=== PATIENT | female | born 1930 | race Caucasian/White ===

== ENCOUNTER 2017-07-07 17:39 | Emergency (ER) | payer OTHER, BC ==
--- NOTE | 2017-07-07 17:46 | EDPHY ---
H & P Time Seen by Provider: 07/07/17 17:45 - Personal History Tetanus Vaccine Date: WITHIN 10 YRS - Medical/Surgical History Hx Asthma: No Hx Chronic Respiratory Disease: No Hx Diabetes: No Hx Cardiac Disease: Yes Hx Renal Disease: No Hx Cirrhosis: No Hx Alcoholism: No Hx HIV/AIDS: No Hx Splenectomy or Spleen Trauma: No Other PMH: PE, HTN, compression fx, high cholesterol, home oxygen,frequent falls due to ETOH - Social History Smoking Status: Never smoked Constitutional: Initial Vital Signs Temperature (C) 36.8 C 07/07/17 17:43 Heart Rate 69 07/07/17 17:43 Respiratory Rate 18 07/07/17 17:43 Blood Pressure 123/78 H 07/07/17 17:43 O2 Sat (%) 88 L 07/07/17 17:43 O2 Delivery Mode Room Air O2 (L/minute) 3 Allergies/Adverse Reactions: No Known Allergies Allergy (Verified 11/14/13 11:32) Home Medications: Medication Instructions Recorded Acetaminophen [Tylenol ES 500 mg 500 - 1,000 mg PO DAILY PRN 09/14/13 (*)] Atorvastatin Calcium [Lipitor 40 40 mg PO DAILY 09/14/13 mg (*)] Cholecalciferol Vit D3 [Vitamin D3 50,000 unit PO SUTH@09 09/14/13 (*)] Montelukast Sodium [Singulair 10 10 mg PO DAILY@1800 09/14/13 mg (*)] Rivaroxaban [Xarelto 10mg (*)] 20 mg PO DAILY 09/14/13 Aspirin [Aspirin 81mg (*)] 81 mg PO DAILY #0 tab 11/22/13 Losartan Potassium [Cozaar 50 mg 50 mg PO DAILY #0 tab 11/22/13 (*)] Methocarbamol [Robaxin 500 mg (*)] 500 mg PO QID #0 tab 11/22/13 Metoprolol Tartrate [Lopressor 50 25 mg PO BID #0 tab 11/22/13 mg (*)] oxyCODONE/APAP 5/325 [Percocet 1 - 2 tab PO Q4 PRN #0 tab 11/22/13 5/325 (*)] traMADol [Ultram 50 mg (*)] 50 mg PO Q6 PRN #0 tab 11/22/13 Medical Decision Making ED Course/Re-evaluation: CHIEF COMPLAINT: "I fell down 3 or 4 stairs" HISTORY OF PRESENT ILLNESS: This is an 86 y/o female who arrives via EMS for evaluation after falling down 3-4 stairs. She denies any complaints from the fall. She normally uses a walker, but uses the handrails to support herself when traversing the stairs. She denies any preceding symptoms describes a mechanical trip causing her to fall. No head strike, loss of consciousness, weakness, paresthesias, extremity injury, pelvis pain, chest pain, or abdominal pain. REVIEW OF SYSTEMS: A 10 point review of systems was performed and is negative with the exception of the elements mentioned in the history of present illness. PHYSICAL EXAM: HR, BP, O2 Sat, RR. Temp noted General Appearance: Alert, well hydrated, appropriate, and non-toxic appearing. Head: Atraumatic without scalp tenderness or obvious injury Eyes: Pupils equal, round, reactive to light and accommodation, EOMI, no trauma , no injection. Ears: Clear bilaterally, no perforation, normal landmarks Nose: Atraumatic, no rhinorrhea, clear. Throat: There is no erythema or exudates, no lesions, normal tonsils, mucus membranes moist. Neck: Supple, nontender, no lymphadenopathy. Respiratory: No retractions, no distress, no wheezes, and no accessory muscle use. Lungs are clear to auscultation bilaterally. Cardiovascular: Regular rate and rhythm, no murmurs, rubs, or gallops. Good capillary refill all extremities. Gastrointestinal: Abdomen is soft, nontender, non-distended, no masses, no rebound, no guarding, no peritoneal signs. Musculoskeletal: Normal active ROM of all extremities, atraumatic. Neurological: Alert, appropriate, and interactive. The patient has non-focal cranial nerves, motor, sensory, and cerebellar exam. Skin: No rashes, good turgor, no nodules on palpation. Past medical history: PE, hypertension, hyperlipidemia, osteoporosis with compression fractures, stroke Past surgical history: Kyphoplasty Family history: Noncontributory. Social history: Nonsmoker. Alcohol use. Uses walker. Prior medical records reviewed including admission 2013 for fall. DIFFERENTIAL DIAGNOSIS: The differential diagnosis for the patient's symptoms included but was not limited to mechanical fall, frailty, weakness. MEDICAL DECISION MAKING: This is an 86 y/o female who presents for evaluation after what she describes as a mechanical fall with no complaints. No visible trauma on exam. Her neuro exam is non-focal. I do not have a strong indication for any head or spine imaging. Roadtested with a walker without any issue. She will be discharged home with standard follow up and return precautions. She is agreeable to this plan. Departure - Departure Disposition: Home, Routine, Self-Care Clinical Impression: Fall Qualifiers: Encounter type: initial encounter Qualified Code(s): W19.XXXA - Unspecified fall, initial encounter Condition: Good Instructions: Fall Prevention for Older Adults (ED) Additional Instructions: Follow up with your primary care provider as needed. Return to the ED if you develop any symptoms including headache, weakness, numbness, vision changes, speech difficulty, confusion, or other complaitns. Referrals: Daron Barraza MD [Medical Doctor] - As per Instructions Report Scribed for: Juancarlos Starkey Report Scribed by: Meg Robles Date of Report: 07/07/17 Time of Report: 18:22
[2017-07-07 21:22] VITALS: BP 155/75; PULSE 68; RESP 22; TEMP 97.5; O2SAT 90
== END 2017-07-07 21:20 | disposition home or self-care (01) ==
LOC: EDUNIT#
DX: Z04.3 Encounter for examination and observation following other accident (principal); I10 Essential (primary) hypertension; Z79.82 Long term (current) use of aspirin; W10.9XXA Fall (on) (from) unspecified stairs and steps, initial encounter; Y93.89 Activity, other specified

== ENCOUNTER 2018-04-04 19:42 | Inpatient (IN) | payer OTHER, BC ==
--- NOTE | 2018-04-04 19:53 | EDPHY ---
H & P Time Seen by Provider: 04/04/18 19:42 HPI/ROS: CHIEF COMPLAINT: Generalized weakness HISTORY OF PRESENT ILLNESS: Patient arrives by EMS history from her as well as meteorology instructor who is present. She lives independently and today she just felt much much weaker and was unable to walk up the stairs. Symptoms severe and really only started this afternoon. Not associated with headache or cough or chest pain or shortness of breath or urinary symptoms. She does not have confusion or difficulty speaking or difficulty with her vision. No trouble with her balance. REVIEW OF SYSTEMS: Eye: no change in vision ENT: no sore throat Cardiac: no chest pain or syncope Pulmonary: no cough or SOB Abdomen: no vomiting, diarrhea, abdominal pain Musculoskeletal: no back pain Skin: no rash Neuro: no headache Constitutional: no fever : no urinary symptoms A comprehensive 10 point review of systems is otherwise negative aside from elements mentioned in the history of present illness. PAST MEDICAL HISTORY: Includes PE, hypertension, ethanol level in August of 2013 during ED visit was 213 Social history: Lives independently here with caregiver. Vodka today General Appearance: Alert and conversant, cooperative. Eyes: No scleral icterus. ENT, Mouth: Normal mucous membranes. Respiratory: Normal respiratory effort, breath sounds equal, lungs are clear to auscultation. Cardiovascular: Regular rate and rhythm. Gastrointestinal: Abdomen is soft and non tender. Neurological: Alert, face symmetric, she can move all 4 extremities and has normal sensation to light touch but is generally weak. Not slurring her speech. Normal mentation. Skin: Warm and dry, no rashes. Musculoskeletal: No peripheral edema. Psychiatric: Not agitated. Emergency Department course/MDM: CT head, EKG and labs to include chemistry, urinalysis, ethanol level. CT head negative, Nuss[place] 2110. Admit due to weakness. Can't go back to independent living as she is unable to walk tonight. Only positive finding is ethanol level. Smoking Status: Never smoked Constitutional: Initial Vital Signs Temperature (C) 36.4 C 04/04/18 19:45 Heart Rate 80 04/04/18 19:45 Respiratory Rate 15 04/04/18 19:45 Blood Pressure 141/75 H 04/04/18 19:45 O2 Sat (%) 90 L 04/04/18 19:45 O2 Delivery Mode Room Air Allergies/Adverse Reactions: No Known Allergies Allergy (Verified 04/04/18 19:51) Home Medications: Medication Instructions Recorded Advil 04/04/18 Aspirin 81mg (*) 04/04/18 Atorvastatin Calcium 04/04/18 Metoprolol Tartrate 04/04/18 Montelukast Sodium 04/04/18 Preservision Areds 2 Softgel 04/04/18 Medical Decision Making - Diagnostics EKG Interpretation: 12-lead EKG interpreted by me; official reading is in computer system. My interpretation is sinus rhythm rate 71, low voltage, early RS transition. Long QT. Imaging Results: Negative head CT per Radiology Imaging: Discussed imaging studies w/ engineering aid Radiologist Differential Diagnosis: Differential diagnosis considered for weakness including but not limited to electrolyte abnormality, depression, anxiety, CVA, spinal cord abnormality, and infectious causes. Consult/Admit Bed Type: [place] [id number] - Data Points Laboratory Results: Laboratory Results 04/04/18 19:55 04/04/18 19:55 04/04/18 04/04/18 04/04/18 20:35 20:03 19:55 WBC RBC Hgb Hct MCV MCH MCHC RDW Plt Count MPV Neut % (Auto) Lymph % (Auto) Real % (Auto) Eos % (Auto) Baso % (Auto) Nucleat RBC Rel Count Absolute Neuts (auto) Absolute Lymphs (auto) Absolute Monos (auto) Absolute Eos (auto) Absolute Basos (auto) Absolute Nucleated RBC Immature Gran % Immature Gran # Sodium 137 mEq/L mEq/L (135-145) Potassium 4.0 mEq/L mEq/L (3.3-5.0) Chloride 104 mEq/L mEq/L (97-110) Carbon Dioxide 20 mEq/l L mEq/l (22-31) Anion Gap 13 mEq/L mEq/L (8-16) BUN 17 mg/dL mg/dL (7-23) Creatinine 0.9 mg/dL mg/dL (0.6-1.0) Estimated GFR 59 Glucose 81 mg/dL mg/dL (70-100) Calcium 8.7 mg/dL mg/dL (8.5-10.4) POC Troponin I 0.00 ng/mL ng/mL (0.00-0.08) Urine Color YELLOW Urine Appearance HAZY Urine pH 5.0 (5.0-7.5) Ur Specific [place] 1.011 (1.002-1.030) Urine Protein NEGATIVE (NEGATIVE) Urine Ketones NEGATIVE (NEGATIVE) Urine Blood NEGATIVE (NEGATIVE) Urine Nitrate NEGATIVE (NEGATIVE) Urine Bilirubin NEGATIVE (NEGATIVE) Urine Urobilinogen NEGATIVE EU EU (0.2-1.0) Ur Leukocyte Esterase TRACE H (NEGATIVE) Urine RBC 1-3 /hpf /hpf (0-3) Urine WBC 3-5 /hpf H /hpf (0-3) Ur Epithelial Cells TRACE /lpf /lpf (NONE-1+) Amorphous Sediment PRESENT /hpf /hpf (NONE-1+) Urine Bacteria TRACE /hpf H /hpf (NONE SEEN) Hyaline Casts 5-15 /lpf /lpf (0-1) Urine Mucus TRACE /lpf /lpf (NONE-1+) Urine Glucose NEGATIVE (NEGATIVE) Ethyl Alcohol 87 mg/dL H mg/dL (0-10) 04/04/18 19:55 WBC 12.35 10^3/uL H 10^3/uL (3.80-9.50) RBC 3.90 10^6/uL L 10^6/uL (4.18-5.33) Hgb 12.8 g/dL g/dL (12.6-16.3) Hct 39.3 % % (38.0-47.0) MCV 100.8 fL H fL (81.5-99.8) MCH 32.8 pg pg (27.9-34.1) MCHC 32.6 g/dL g/dL (32.4-36.7) RDW 13.2 % % (11.5-15.2) Plt Count 230 10^3/uL 10^3/uL (150-400) MPV 9.9 fL fL (8.7-11.7) Neut % (Auto) 73.1 % % (39.3-74.2) Lymph % (Auto) 18.9 % % (15.0-45.0) Real % (Auto) 5.9 % % (4.5-13.0) Eos % (Auto) 1.2 % % (0.6-7.6) Baso % (Auto) 0.5 % % (0.3-1.7) Nucleat RBC Rel Count 0.0 % % (0.0-0.2) Absolute Neuts (auto) 9.02 10^3/uL H 10^3/uL (1.70-6.50) Absolute Lymphs (auto) 2.34 10^3/uL 10^3/uL (1.00-3.00) Absolute Monos (auto) 0.73 10^3/uL 10^3/uL (0.30-0.80) Absolute Eos (auto) 0.15 10^3/uL 10^3/uL (0.03-0.40) Absolute Basos (auto) 0.06 10^3/uL 10^3/uL (0.02-0.10) Absolute Nucleated RBC 0.00 10^3/uL 10^3/uL (0-0.01) Immature Gran % 0.4 % % (0.0-1.1) Immature Gran # 0.05 10^3/uL 10^3/uL (0.00-0.10) Sodium Potassium Chloride Carbon Dioxide Anion Gap BUN Creatinine Estimated GFR Glucose Calcium POC Troponin I Urine Color Urine Appearance Urine pH Ur Specific [place] Urine Protein Urine Ketones Urine Blood Urine Nitrate Urine Bilirubin Urine Urobilinogen Ur Leukocyte Esterase Urine RBC Urine WBC Ur Epithelial Cells Amorphous Sediment Urine Bacteria Hyaline Casts Urine Mucus Urine Glucose Ethyl Alcohol Point of Care Test Results: Chemistry 04/04/18 20:03 POC Troponin I 0.00 ng/mL ng/mL (0.00-0.08) Departure - Departure Disposition: [facility] Clinical Impression: Weakness, ethanol ingestion Condition: Good
--- NOTE | 2018-04-04 20:08 | CPEKG ---
Test Reason : OPEN Blood Pressure : / mmHG Vent. Rate : 071 BPM Atrial Rate : 072 BPM P-R Int : 143 ms QRS Dur : 095 ms QT Int : 461 ms P-R-T Axes : 000 000 007 degrees QTc Int : 502 ms Normal sinus rhythm Indeterminate axis Low voltage, extremity and precordial leads Abnormal R-wave progression, early transition Prolonged QT interval Confirmed by Pedro Luis Kwok ([id number]) on 04/04/2018 8:08:04 PM Referred By: Confirmed By:Pedro Luis Kwok
[2018-04-04 20:11] LABS: PLATELET COUNT 230 10^3/uL (150-400)
[2018-04-04] MEDS ORDERED: ONDANSETRON 4 MG/2 ML VIAL IVP PRN (22:06)
[2018-04-04] MEDS ORDERED: ACETAMINOPHEN 325 MG TAB PO PRN (22:06)
[2018-04-04] MEDS ORDERED: ONDANSETRON DISINTEGRATING 4 MG TAB PO PRN (22:06)
[2018-04-04] MEDS: D5W 1/2 NS 1,000 ML IV SCH (22:34)
--- NOTE | 2018-04-04 23:44 | PDGENHP ---
History and Physical - Chief Complaint Weakness - History of Present Illness 87 yo F w/ hx of CAD, PE, HTN presents with weakness. Patient tells me she developed generalized weakness today. She was in her usual state of health previously. She denies all infectious ROS including MCNEILL, cough, SOB, abdominal pain, diarrhea, and dysuria. She does tell me she has had a very poor appetite for several months. She did not have any dinner last night and drinks little fluids. She does, however, drink vodka daily. As far as I can tell from our conversation she drinks 6-8 oz per day. She denies prior history of withdrawal. Case discussed with Dr. Tatum, records reviewed in EMR. History Information - Allergies/Home Medication List Allergies/Adverse Reactions: No Known Allergies Allergy (Verified 04/04/18 19:51) Home Medications: Advil 04/04/18 [Last Taken Unknown] Aspirin 81mg (*) 04/04/18 [Last Taken Unknown] Atorvastatin Calcium 04/04/18 [Last Taken Unknown] Metoprolol Tartrate 04/04/18 [Last Taken Unknown] Montelukast Sodium 04/04/18 [Last Taken Unknown] Preservision Areds 2 Softgel 04/04/18 [Last Taken Unknown] I have personally reviewed and updated: family history, medical history - Past Medical History coronary artery disease, hypertension, pulmonary embolism - Surgical History Additional surgical history: Cataract surgery - Family History Positive for: CAD - Social History Smoking Status: Never smoked Review of Systems Review of Systems: ROS: 10pt was reviewed & negative except for what was stated in HPI & below Physical Exam Physical Exam: Temp Pulse Resp BP Pulse Ox 36.9 C 73 17 167/83 H 98 04/04/18 23:24 04/04/18 23:24 04/04/18 23:24 04/04/18 23:24 04/04/18 23:24 O2 (L/minute) 2 Constitutional: no apparent distress, not in pain Eyes: PERRL, EOMI Ears, Nose, Mouth, Throat: moist mucous membranes, no oral mucosal ulcers Cardiovascular: regular rate and rhythym, no murmur, rub, or gallop Respiratory: no respiratory distress, no rales or rhonchi Gastrointestinal: normoactive bowel sounds, soft, non-tender abdomen Skin: warm, normal color Musculoskeletal: full muscle strength, no muscle tenderness Neurologic: AAOx3, CN II-XII Intact, No weakness, No numbness Psychiatric: interacting appropriately, not anxious Lab Data & Imaging Review 04/04/18 19:55 04/04/18 19:55 WBC 12.35 10^3/uL (3.80-9.50) H 04/04/18 19:55 RBC 3.90 10^6/uL (4.18-5.33) L 04/04/18 19:55 Hgb 12.8 g/dL (12.6-16.3) 04/04/18 19:55 Hct 39.3 % (38.0-47.0) 04/04/18 19:55 MCV 100.8 fL (81.5-99.8) H 04/04/18 19:55 MCH 32.8 pg (27.9-34.1) 04/04/18 19:55 MCHC 32.6 g/dL (32.4-36.7) 04/04/18 19:55 RDW 13.2 % (11.5-15.2) 04/04/18 19:55 Plt Count 230 10^3/uL (150-400) 04/04/18 19:55 MPV 9.9 fL (8.7-11.7) 04/04/18 19:55 Neut % (Auto) 73.1 % (39.3-74.2) 04/04/18 19:55 Lymph % (Auto) 18.9 % (15.0-45.0) 04/04/18 19:55 [place] % (Auto) 5.9 % (4.5-13.0) 04/04/18 19:55 Eos % (Auto) 1.2 % (0.6-7.6) 04/04/18 19:55 Baso % (Auto) 0.5 % (0.3-1.7) 04/04/18 19:55 Nucleat RBC Rel Count 0.0 % (0.0-0.2) 04/04/18 19:55 Absolute Neuts (auto) 9.02 10^3/uL (1.70-6.50) H 04/04/18 19:55 Absolute Lymphs (auto) 2.34 10^3/uL (1.00-3.00) 04/04/18 19:55 Absolute Monos (auto) 0.73 10^3/uL (0.30-0.80) 04/04/18 19:55 Absolute Eos (auto) 0.15 10^3/uL (0.03-0.40) 04/04/18 19:55 Absolute Basos (auto) 0.06 10^3/uL (0.02-0.10) 04/04/18 19:55 Absolute Nucleated RBC 0.00 10^3/uL (0-0.01) 04/04/18 19:55 Immature Gran % 0.4 % (0.0-1.1) 04/04/18 19:55 Immature Gran # 0.05 10^3/uL (0.00-0.10) 04/04/18 19:55 Sodium 137 mEq/L (135-145) 04/04/18 19:55 Potassium 4.0 mEq/L (3.3-5.0) 04/04/18 19:55 Chloride 104 mEq/L (97-110) 04/04/18 19:55 Carbon Dioxide 20 mEq/l (22-31) L 04/04/18 19:55 Anion Gap 13 mEq/L (8-16) 04/04/18 19:55 BUN 17 mg/dL (7-23) 04/04/18 19:55 Creatinine 0.9 mg/dL (0.6-1.0) 04/04/18 19:55 Estimated GFR 59 04/04/18 19:55 Glucose 81 mg/dL (70-100) 04/04/18 19:55 Calcium 8.7 mg/dL (8.5-10.4) 04/04/18 19:55 Phosphorus 2.6 mg/dL (2.5-4.5) 04/04/18 22:40 Total Bilirubin 0.3 mg/dL (0.1-1.4) 04/04/18 22:40 Conjugated Bilirubin 0.1 mg/dL (0.0-0.5) 04/04/18 22:40 Unconjugated Bilirubin 0.2 mg/dL (0.0-1.1) 04/04/18 22:40 AST 14 IU/L (14-46) 04/04/18 22:40 ALT 21 IU/L (9-52) 04/04/18 22:40 Alkaline Phosphatase 41 IU/L (38-126) 04/04/18 22:40 POC Troponin I 0.00 ng/mL (0.00-0.08) 04/04/18 20:03 Total Protein 4.1 g/dL (6.3-8.2) L 04/04/18 22:40 Albumin 1.9 g/dL (3.5-5.0) L 04/04/18 22:40 Urine Color YELLOW 04/04/18 20:35 Urine Appearance HAZY 04/04/18 20:35 Urine pH 5.0 (5.0-7.5) 04/04/18 20:35 Ur Specific [place] 1.011 (1.002-1.030) 04/04/18 20:35 Urine Protein NEGATIVE (NEGATIVE) 04/04/18 20:35 Urine Ketones NEGATIVE (NEGATIVE) 04/04/18 20:35 Urine Blood NEGATIVE (NEGATIVE) 04/04/18 20:35 Urine Nitrate NEGATIVE (NEGATIVE) 04/04/18 20:35 Urine Bilirubin NEGATIVE (NEGATIVE) 04/04/18 20:35 Urine Urobilinogen NEGATIVE EU (0.2-1.0) 04/04/18 20:35 Ur Leukocyte Esterase TRACE (NEGATIVE) H 04/04/18 20:35 Urine RBC 1-3 /hpf (0-3) 04/04/18 20:35 Urine WBC 3-5 /hpf (0-3) H 04/04/18 20:35 Ur Epithelial Cells TRACE /lpf (NONE-1+) 04/04/18 20:35 Amorphous Sediment PRESENT /hpf (NONE-1+) 04/04/18 20:35 Urine Bacteria TRACE /hpf (NONE SEEN) H 04/04/18 20:35 Hyaline Casts 5-15 /lpf (0-1) 04/04/18 20:35 Urine Mucus TRACE /lpf (NONE-1+) 04/04/18 20:35 Urine Glucose NEGATIVE (NEGATIVE) 04/04/18 20:35 Ethyl Alcohol 87 mg/dL (0-10) H 04/04/18 19:55 Imaging Review: Imaging Impressions Chest X-Ray 04/04/18 19:51 Impression: No evidence for acute cardiopulmonary abnormality. Chronic findings, as above. Head CT 10/03/18 19:51 Impression: No evidence for an acute intracranial abnormality. Extensive periventricular and deep hemispheric white matter change that can be seen with small vessel ischemic disease, with a stable appearance. Generalized cerebral atrophy. Results called and discussed with Pedro Luis Kwok M.D., on April 04, 2018 at 2112. Assessment & Plan Assessment: 87 yo F w/ hx of CAD, HTN, and PE presents with generalized weakness. Plan: 1. Generalized weakness - With new onset of day of admission. She denies all infectious ROS and work-up in the ED has been unremarkable. CTH (personally reviewed/interpreted) without acute findings. This is likely multifactorial from dehydration, deconditioning, and ongoing ETOH use. - Admit for observation - mIVF overnight - Will check Phos, LFTs, TSH - PT/OT evaluations 2. HTN - On metoprolol, continue pending reconciliation. 3. Hx CAD - Non-obstructive disease, continue ASA. 4. ETOH use - Drinks 6-8 oz vodka daily. Denies history of withdrawal. - Cooperative Extension Agent cessation - Monitor Mg, Ph - Monitor for signs of withdrawal, none currently Diet - Regular Code - Full Ppx - LMWH Dispo - Admit under observation status
[2018-04-05 05:02] LABS: PLATELET COUNT 212 10^3/uL (150-400)
--- NOTE | 2018-04-05 08:30 | HOSPPROG ---
Hospitalist Progress Note Assessment/Plan: 87 yo F w/ hx of CAD, HTN, and PE presents with generalized weakness. Reviewed her care with Dr Palmer who admitted her last night, today is my first encounter w the patient, chart reviewed. *Generalized weakness -CT of head shows nothing acute -TSH stable -will await info from PT -OT recommending SNF *pyuria -has a few wbc in urine, no c/o frequency or urgency *htn -resumed home med *hx of CAD -nonobstructive -asa *ETOH use -thiamine IV added -will give her a low dose of vodka in the evenings -she enjoys this and likely will not stop drinking *Plan: monitor overnight, she is requiring a 2 person assist to get OOB and is a high fall risk. This will make her IP status. Will cont IV fluids she isn't drinking much. Subjective: Mayra has no complaints and says she is tired but feels fine. Objective: Vital Signs Temp Pulse Resp BP Pulse Ox 36.4 C 71 12 131/73 H 95 04/05/18 08:00 04/05/18 08:00 04/05/18 08:00 04/05/18 08:00 04/05/18 08:00 Laboratory Results 04/05/18 04:50 04/05/18 04:50 04/04/18 04/05/18 04/06/18 05:59 05:59 05:59 Intake Total 750 Balance 750 - Physical Exam Constitutional: no apparent distress Eyes: PERRL Ears, Nose, Mouth, Throat: dry mucous membranes, hard of hearing Cardiovascular: regular rate and rhythym Respiratory: no respiratory distress Skin: warm Musculoskeletal: generalized weakness Neurologic: AAOx3 Psychiatric: interacting appropriately ICD10 Worksheet Patient Problems: Problems Problem Status Onset Weakness Acute Acute renal injury Acute Cor pulmonale, acute Acute Hypoxia Acute Myocarditis Acute Pulmonary embolism Acute
[2018-04-05] MEDS: ENOXAPARIN 40 MG/0.4 ML SYR SC SCH (08:56)
[2018-04-05] MEDS ORDERED: THIAMINE HCL 200 MG/2 ML VIAL IM SCH (10:15)
[2018-04-05] MEDS: D5W 1/2 NS 1,000 ML IV SCH (11:01)
--- NOTE | 2018-04-05 12:12 | ASMTCMCOM ---
CM Note CM Note Notes: CM reviewed pt's chart and met with pt for d/c planning. Pt is an 87 y/o female w/hx of CAD, HTN,, and PE presented to the ED with generalized weakness. She told the hospitalist that she has had a very poor appetite for several months. She did not have dinner last night and drinks little fluids. She does drink approx 6-8 oz of vodka daily. Pt lives by herself in a 3 story home. There are approx 20 stairs up to the front door. Pt states she lives on the first 2 floors of the house and rarely goes out alone so doesn't often need to climb the stairs, but will when d/mark from here. She states that she came to the hospital because of not being able to climb the stairs and enter her home. She has no plan to move. Unskilled nursing services through [facility] are in the home 7 days a week from 7-9 and 5-7. They help her into bed at night. twice a week they are also there from 9-2. Pt has a daughter and son who live out of state. Her son is moving here at the end of the month. Pt was SOB during the converstaion. PT and OT have been ordered, awaiting evals. CM to follow. D/C Plan: TBD Date Signed: 04/05/2018 11:53 AM Electronically Signed By:Amisha Deleon
[2018-04-05] MEDS ORDERED: IBUPROFEN 200 MG TAB PO PRN (12:41)
[2018-04-05] MEDS ORDERED: NS 1,000 ML IV SCH (15:45)
[2018-04-05] MEDS: FOLIC ACID 1 MG TAB PO SCH (15:54)
[2018-04-05] MEDS: MONTELUKAST SODIUM 10 MG TAB PO SCH (17:46)
[2018-04-05] MEDS: METOPROLOL TARTRATE 25 MG TAB PO SCH (17:46)
[2018-04-05] MEDS: VODKA 50 ML BOTTLE PO SCH (17:47)
[2018-04-06] MEDS: ATORVASTATIN CALCIUM 40 MG TAB PO SCH (08:03)
[2018-04-06] MEDS: METOPROLOL TARTRATE 25 MG TAB PO SCH ×2 (08:03→17:28)
[2018-04-06] MEDS: PRESERVISION AREDS2 FORMULA EYE VIT 1 EACH PO SCH (08:03)
[2018-04-06] MEDS: MULTIVITAMINS 1 EACH TAB PO SCH (08:03)
[2018-04-06] MEDS: ASPIRIN 81 MG CHEWABLE TAB PO SCH (08:03)
[2018-04-06] MEDS: ENOXAPARIN 40 MG/0.4 ML SYR SC SCH (08:03)
[2018-04-06] MEDS: THIAMINE HCL 500 MG in NS 100 ML IV SCH (08:03)
[2018-04-06] MEDS: FOLIC ACID 1 MG TAB PO SCH (08:03)
--- NOTE | 2018-04-06 08:32 | PDMN ---
Medical Necessity Medical necessity: Change to IP, as of 04/05/18, per [employer] & MCG CG-GDC (General Discharge Criteria); los >2 mn for ongoing management of generalized weakness, pyuria & dehydration; pt requiring 2 person max assist to ambulate & is a high fall risk; requiring further monitoring, IVFs & therapies; comorbid advanced age , CAD, HTN, PE, ETOH use
--- NOTE | 2018-04-06 11:05 | ASMTCMCOM ---
CM Note CM Note Notes: PT/OT are recommending a SNF discharge. Spoke with pt and she is resistant to the idea. She has been to [facility] in the past - informed her they are taking very few short term rehab pts at this time. Also informed PT of pt's reluctance and encouraged pt to talk with therapies about their reasons for recommending a SNF discharge. Pt's son will not be living with her after he moves here. Per Zaire at , she has no bed availability. Date Signed: 04/06/2018 11:04 AM Electronically Signed By:DAY Ely
--- NOTE | 2018-04-06 13:37 | HOSPPROG ---
Hospitalist Progress Note Assessment/Plan: 87 yo F w/ hx of CAD, HTN, and PE presents with generalized weakness. *Generalized weakness -CT of head shows nothing acute -TSH stable -therapies recommending SNF -she has help at home in the morning, but needs strengthening to be able to return home *pyuria -has a few wbc in urine, no c/o frequency or urgency *htn -resumed home med *hx of CAD -nonobstructive -asa *ETOH use -thiamine IV added -will give her a low dose of vodka in the evenings -she enjoys this and likely will not stop drinking *Plan: continue supportive treatment, she is fine with going to rehab for strengthening to be able to return home Subjective: Mayra has no complaints. Objective: Vital Signs Temp Pulse Resp BP Pulse Ox 36.3 C 64 16 112/51 L 94 04/06/18 11:15 04/06/18 11:15 04/06/18 11:15 04/06/18 11:15 04/06/18 11:15 04/05/18 04/06/18 04/07/18 05:59 05:59 05:59 Intake Total 250 Output Total 450 Balance -200 - Physical Exam Constitutional: no apparent distress, appears nourished, not in pain Eyes: PERRL Ears, Nose, Mouth, Throat: hard of hearing Cardiovascular: regular rate and rhythym Respiratory: no respiratory distress Gastrointestinal: normoactive bowel sounds Skin: warm Musculoskeletal: generalized weakness Neurologic: AAOx3 Psychiatric: interacting appropriately ICD10 Worksheet Patient Problems: Problems Problem Status Onset Weakness Acute Acute renal injury Acute Cor pulmonale, acute Acute Hypoxia Acute Myocarditis Acute Pulmonary embolism Acute
[2018-04-06] MEDS: VODKA 50 ML BOTTLE PO SCH (17:28)
[2018-04-06] MEDS: MONTELUKAST SODIUM 10 MG TAB PO SCH (17:28)
[2018-04-07] MEDS: ASPIRIN 81 MG CHEWABLE TAB PO SCH (08:39)
[2018-04-07] MEDS: PRESERVISION AREDS2 FORMULA EYE VIT 1 EACH PO SCH (08:39)
[2018-04-07] MEDS: FOLIC ACID 1 MG TAB PO SCH (08:40)
[2018-04-07] MEDS: METOPROLOL TARTRATE 25 MG TAB PO SCH ×2 (08:40→17:25)
[2018-04-07] MEDS: ATORVASTATIN CALCIUM 40 MG TAB PO SCH (08:40)
[2018-04-07] MEDS: ENOXAPARIN 40 MG/0.4 ML SYR SC SCH (08:41)
[2018-04-07] MEDS: MULTIVITAMINS 1 EACH TAB PO SCH (08:48)
[2018-04-07] MEDS: THIAMINE HCL 500 MG in NS 100 ML IV SCH (10:10)
--- NOTE | 2018-04-07 15:02 | HOSPPROG ---
Hospitalist Progress Note Assessment/Plan: 87 yo F w/ hx of CAD, HTN, and PE presents with generalized weakness. *Generalized weakness -CT of head shows nothing acute -TSH stable -therapies recommending SNF -she has help at home in the morning, but needs strengthening to be able to return home *pyuria -has a few wbc in urine, no c/o frequency or urgency *htn -resumed home med *hx of CAD -nonobstructive -asa *ETOH use -thiamine IV added -will give her a low dose of vodka in the evenings -she enjoys this and likely will not stop drinking *Plan: continue supportive treatment, she is fine with going to rehab for strengthening to be able to return home Subjective: Laly has no complaints, she's concerned she is so weak. Objective: Vital Signs Temp Pulse Resp BP Pulse Ox 36.3 C 60 14 141/68 H 91 L 04/07/18 11:36 04/07/18 11:36 04/07/18 11:36 04/07/18 11:36 04/07/18 11:36 04/06/18 04/07/18 04/08/18 05:59 05:59 05:59 Intake Total 250 1300 Output Total 450 1100 Balance -200 200 - Physical Exam Constitutional: no apparent distress, appears nourished, not in pain Eyes: PERRL Ears, Nose, Mouth, Throat: hearing normal Cardiovascular: regular rate and rhythym Respiratory: no respiratory distress Skin: warm Musculoskeletal: generalized weakness Neurologic: AAOx3 Psychiatric: interacting appropriately ICD10 Worksheet Patient Problems: Problems Problem Status Onset Weakness Acute Acute renal injury Acute Cor pulmonale, acute Acute Hypoxia Acute Myocarditis Acute Pulmonary embolism Acute
[2018-04-07] MEDS: MONTELUKAST SODIUM 10 MG TAB PO SCH (17:25)
[2018-04-07] MEDS: VODKA 50 ML BOTTLE PO SCH (17:25)
[2018-04-08] MEDS: MULTIVITAMINS 1 EACH TAB PO SCH (08:06)
[2018-04-08] MEDS: ATORVASTATIN CALCIUM 40 MG TAB PO SCH (08:06)
[2018-04-08] MEDS: ASPIRIN 81 MG CHEWABLE TAB PO SCH (08:06)
[2018-04-08] MEDS: PRESERVISION AREDS2 FORMULA EYE VIT 1 EACH PO SCH (08:06)
[2018-04-08] MEDS: FOLIC ACID 1 MG TAB PO SCH (08:06)
[2018-04-08] MEDS: ENOXAPARIN 40 MG/0.4 ML SYR SC SCH (08:07)
[2018-04-08] MEDS: METOPROLOL TARTRATE 25 MG TAB PO SCH (08:07)
--- NOTE | 2018-04-08 09:00 | HOSPPROG ---
Hospitalist Progress Note Assessment/Plan: 87 yo F w/ hx of CAD, HTN, and PE presents with generalized weakness. *Generalized weakness -CT of head shows nothing acute -TSH stable -therapies recommending SNF -she has help at home in the morning, but needs strengthening to be able to return home -has no cp, no c/o back pain -she is feeling stronger getting PT and OT while here in the hospital *pyuria -has a few wbc in urine, no c/o frequency or urgency *htn -resumed home med *hx of CAD -nonobstructive -asa *ETOH use -thiamine IV added -will give her a low dose of vodka in the evenings -she enjoys this and likely will not stop drinking *Plan: dc to rehab w plans of returning home soon Subjective: Laly is feeling fine, has no c/o pain. Objective: Vital Signs Temp Pulse Resp BP Pulse Ox 37.1 C 65 14 151/67 H 92 04/08/18 07:51 04/08/18 07:51 04/08/18 07:51 04/08/18 07:51 04/08/18 08:25 04/07/18 04/08/18 04/09/18 05:59 05:59 05:59 Intake Total 1300 350 Output Total 1100 650 Balance 200 -300 - Physical Exam Constitutional: no apparent distress, appears nourished, not in pain Eyes: PERRL Ears, Nose, Mouth, Throat: hearing normal Cardiovascular: regular rate and rhythym Respiratory: no respiratory distress Gastrointestinal: normoactive bowel sounds Skin: warm Musculoskeletal: generalized weakness Neurologic: AAOx3, CN II-XII Intact, No facial droop Psychiatric: interacting appropriately, not anxious, not encephalopathic, thought process linear ICD10 Worksheet Patient Problems: Problems Problem Status Onset Weakness Acute Acute renal injury Acute Cor pulmonale, acute Acute Hypoxia Acute Myocarditis Acute Pulmonary embolism Acute
--- NOTE | 2018-04-08 09:05 | PDIAF ---
- Diagnosis Diagnosis: weakness Code Status: Full Code - Medication Management Discharge Medications: Medications to Continue on Transfer Aspirin [Aspirin 81mg (*)] 81 mg PO DAILY 04/04/18 [Last Taken Unknown] Atorvastatin Calcium [Lipitor 40 mg (*)] 40 mg PO DAILY 04/04/18 [Last Taken Unknown] C/E/Zn/Cu/OM3/DHA/EPA/LUT/ZEAX [Preservision Areds 2 Softgel] 1 each PO DAILY [Last Taken Unknown] Ibuprofen [Motrin (*)] 200 mg PO DAILY PRN 04/04/18 [Last Taken Unknown] Metoprolol Tartrate [Lopressor 25 mg (*)] 25 mg PO BIDMEAL 04/04/18 [Last Taken Unknown] Montelukast Sodium [Singulair 10 mg (*)] 10 mg PO DAILY@1800 04/04/18 [Last Taken Unknown] Acetaminophen [Tylenol 325mg (*)] 650 mg PO Q4HRS PRN tab 04/08/18 [Last Taken Unknown] Folic Acid [Folic Acid 1 MG (*)] 1 mg PO DAILY tab 04/08/18 [Last Taken Unknown ] Multivitamins [Multivitamin (*)] 1 each PO DAILY tab 04/08/18 [Last Taken Unknown] Thiamine HCl [B-1] 100 mg PO DAILY #30 tablet 04/08/18 [Last Taken Unknown] Discharge Medications: Refer to the Discharge Home Medication list for PRN reason. PICC Care - Routine: N/A - Orders Services needed: Physical Therapy, Occupational Therapy Isolation Type: None Oxygen: 2-3 liters at night Diet Recommendation: no restrictions on diet Diet Texture: Regular Texture Diet Additional Instructions: patient likes a small shot of vodka in the evening if available at the SNF f/u with Dr Braga in 1-2 weeks - Follow Up Care Current Providers and Referrals: Patient,NotPresent [Unknown] - As per Instructions Kasie Braga MD [Primary Care Provider] -
[2018-04-08] MEDS: THIAMINE HCL 500 MG in NS 100 ML IV SCH (09:22)
--- NOTE | 2018-04-08 09:48 | GDS ---
DISCHARGE DIAGNOSES: 1. Extreme weakness. 2. Pyuria. 3. Hypertension. 4. History of coronary artery disease, nonobstructive. 5. Alcohol use. HISTORY OF PRESENT ILLNESS: Briefly, the patient is a very sweet 87-year-old female who presented to the emergency room with acute weakness. She was having trouble walking at home. Per her caregiver who is here in the morning, said this was abnormal for her. Urinalysis was checked, which showed nothing acute. CT scan of the head showed nothing acute. She has no chest pain or shortness of breath. She has a history of some back problems, but is not having any back pain. She will be discharged home and further follow up with Dr. Braga. In addition, I will call Dr. Braga today and leave her a message in regard to the patient's admission. HOSPITAL COURSE: 1. Generalized weakness. Her CT of her head shows nothing acute. TSH is stable. She actually has been feeling better since being in the hospital. Question if she may have been dehydrated, plus she uses alcohol nightly and has cut back. 2. Pyuria. She has a few white blood cells in her urine. She has no complaints of frequency or urgency. 3. Hypertension. I resumed her beta dianelys. 4. History of coronary artery disease. This is nonobstructive. Resumed her aspirin and beta dianelys. 5. Alcohol use. She was treated with IV thiamine. Also, have placed her on folic acid. DISCHARGE CONDITION: Stable. Blood pressure is 151/67, heart rate 65, respiratory rate 14, O2 saturation on room air 92%, temperature is 37.1 Celsius. DISCHARGE MEDICATIONS: Please see the EMR. DISCHARGE INSTRUCTIONS: 1. To do increase strengthening exercises with the goal of her returning home. 2. Recommended she cut back on alcohol use. This may have impacted her to get weaker over time. 3. If she develops fever, chills, chest pain, or shortness of breath, return to the ER. Greater than 30 minutes discharging and coordinating her care. /[id number]/MODL MTDD
--- NOTE | 2018-04-08 10:58 | ASMTCMCOM ---
CM Note CM Note Notes: CM to discharge today, CM call to [facility] with [facility] [phone], informed of discharge and sent orders via [employer], CM pending confirmation of transport time from [facility]. CM to follow. Date Signed: 04/08/2018 10:57 AM Electronically Signed By:Jen Drake
[2018-04-08 12:23] VITALS: BP 150/61
--- NOTE | 2018-04-08 13:26 | ASDISCHSUM ---
Discharge Information Plan Status:Hospice-SNF Medically Cleared to Leave:04/08/2018 Discharge Date:04/08/2018 12:58 PM D/C Disposition:[facility] Facility ADT D/C Disposition:[facility] Facility Projected Discharge Date:04/08/2018 11:00 AM Transportation at D/C:ALS/BLS Discharge Delay Reason: Follow-Up Date:04/08/2018 11:00 AM Discharge Slot:2 - 12:01 pm - 18:00 pm Final Diagnosis:Extreme weakness Placement Information Referral Type:*Jail/SNF Referral ID:[facility]-[id number] Provider Name:[facility] Address 1:[address] Address 2: City:[place] Selection Factors: State:[place] Patient Contact Information Contact Name:LAVELLE Relationship:Son Address:[address] Work Phone: [facility]:[place] Alternate Phone: [facility]/Zip Code:[place] [address] Email: Financial Information Financial Class:Medicare Primary Plan Desc:MEDICARE INPATIENT Primary Plan Number:[id number] Secondary Plan Desc: OUT OF STATE [facility] Secondary Plan Number:[id number] Assessment Information [facility] CM Progress Note CM Note CM Note Notes: CM reviewed pt's chart and met with pt for d/c planning. Pt is an 87 y/o female w/hx of CAD, HTN,, and PE presented to the ED with generalized weakness. She told the hospitalist that she has had a very poor appetite for several months. She did not have dinner last night and drinks little fluids. She does drink approx 6-8 oz of vodka daily. Pt lives by herself in a 3 story home. There are approx 20 stairs up to the front door. Pt states she lives on the first 2 floors of the house and rarely goes out alone so doesn't often need to climb the stairs, but will when d/mark from here. She states that she came to the hospital because of not being able to climb the stairs and enter her home. She has no plan to move. Unskilled nursing services through [facility] are in the home 7 days a week from 7-9 and 5-7. They help her into bed at night. twice a week they are also there from 9-2. Pt has a daughter and son who live out of state. Her son is moving here at the end of the month. Pt was SOB during the converstaion. PT and OT have been ordered, awaiting evals. CM to follow. D/C Plan: TBD Date Signed: 04/05/2018 11:53 AM Electronically Signed By:Amisha Deleon [facility] [place] Progress Note CM Note CM Note Notes: PT/OT are recommending a SNF discharge. Spoke with pt and she is resistant to the idea. She has been to [facility] in [facility] past - informed her they are taking very few short term rehab pts at this time. Also informed PT of pt's reluctance and encouraged pt to talk with therapies about their reasons for recommending a SNF discharge. Pt's son will not be living with her after he moves here. Per Zaire at , she has no bed availability. Date Signed: 04/06/2018 11:04 AM Electronically Signed By:DAY Ely [facility] [place] Progress Note BRADLEY Note BRADLEY Note Notes: CM to discharge today, CM call to Zayda with [facility] [phone], informed of discharge and sent orders via [employer], BRADLEY pending confirmation of transport time from [facility]. CM to follow. Date Signed: 04/08/2018 10:57 AM Electronically Signed By:Jen Drake Case Management Discharge Plan Note Case Management Discharge Discharge Order Complete? Answers: Yes Patient to Obtain Answers: Other Medications Transportation Arranged Answers: [facility] Case Management Transport Answers: Yes Form Complete Faxed Final Orders Answers: Yes Agency/Facility Transfer Answers: Yes Notes: via [employer] Report Printed & Faxed to Receiving Agency Family Notified Answers: No Discharge Comments Notes: BRADLEY spoke with Zayda at [facility], stretcher transport set up for 1pm. Jeanne WEST given [phone] for report. CM met with patient, she states understanding of plan, IM delivered and signed and placed in back of chart. CM available to follow if any additional needs should arise. Intervention Information Intervention Type:*MCELROY-Signed Date of Service:04/05/2018 02:15 PM Patient Type:Observation Staff Member:Mayi Kidd Hours: Discipline: Severity: Comment: Intervention Type:*IM-Signed Date of Service:04/08/2018 12:33 PM Patient Type:Inpatient Staff Member:Jen Drake Hours: Discipline: Severity: Comment:IM delivered, signed and placed in braxton k of chart.
--- NOTE | 2018-04-08 13:27 | ASMTCMCOM ---
BRADLEY Note BRADLEY Note Notes: BRADLEY spoke with Mayra at [facility] informing them patient discharging today around 1pm to [facility]. [phone]. Date Signed: 04/08/2018 01:26 PM Electronically Signed By:Jen Drake
== END 2018-04-08 12:58 | DRG 641 ==
LOC: EDUNIT# → F3E 21:39 → OBSVTOIN 04-05 15:32
PROVIDERS: ADMIT Internal Medicine; ATTEND Internal Medicine
DX: E86.0 Dehydration (principal); N39.0 Urinary tract infection, site not specified; R53.1 Weakness; I10 Essential (primary) hypertension; I25.10 Atherosclerotic heart disease of native coronary artery without angina pectoris; Z72.89 Other problems related to lifestyle; Z86.711 Personal history of pulmonary embolism; Z23 Encounter for immunization
CPT/HCPCS: 84484-PO; 97116-GP; 97161-GP; 97166-GO; 97530-GP; 97535-GO; G0008; G0378; G0480; G8978-GP-CL; G8979-GP-CK; G8987-GO-CL; G8988-GO-CK; J1650; J3411